=== PATIENT | female | born 1940 | race Caucasian/White ===

== ENCOUNTER 2021-05-19 07:11 | Inpatient (IN) | payer MEDICARE, MEDICAID ==
[2021-05-19 08:03] LABS: Hemoglobin 12.7 g/dL (12.0-16.0); Mean Corpuscular Hemoglobin 31.2 pg (27.0-31.0); Mean Corpuscular Volume 97.7 fL (78.0-98.0); Mean Platelet Volume 8.2 fL (7.4-10.4); Platelet Count 154 thou/uL (130-400); RBC Distribution Width 12.1 % (11.5-14.5); Red Blood Cell (RBC) Count 4.06 mill/uL (4.20-5.40); White Blood Cell (WBC) Count 35.7 thou/uL (4.8-10.8)
[2021-05-19 08:27] LABS: Band 57 % (5-11); MDiff Complete? YES; Metamyelocyte 2 % (0-0); Monocytes 1 % (0-10); Neutrophil 40 % (42-75); Reflex for Review?? YES
[2021-05-19 08:45] LABS: CKMB 18.6 ng/mL (0-6.6)
[2021-05-19] MEDS ORDERED: Aspirin 300 MG Suppository ONE (08:45)
[2021-05-19] MEDS ORDERED: Acetaminophen 650 MG Suppository ONE (08:45)
[2021-05-19] MEDS ORDERED: cefTRIAXone\\ROCEPHIN 2 GM VIAL ONE (08:50)
[2021-05-19 09:26] LABS: ALT (SGPT) 169 U/L (8-55); AST (SGOT) 161 U/L (5-34); Albumin 3.4 g/dL (3.4-4.8); Alkaline Phosphatase 290 U/L (40-110); Anion Gap 25 mmol/L (10-20); BUN (Urea Nitrogen) 37 mg/dL (9.8-20.1); Bilirubin, Total 1.4 mg/dL (0.2-1.2); Calc. Creatinine Clearance 0 mL/min (70-130); Calcium 7.8 mg/dL (7.8-10.44); Carbon Dioxide 13 mmol/L (23-31); Chloride 101 mmol/L (98-107); Globulin 2.7 g/dL (2.4-3.5); Glucose 348 mg/dL (83-110); Protein, Total 6.1 g/dL (5.8-8.1); Sodium 135 mmol/L (136-145)
[2021-05-19 10:31] LABS: INR-International Normal Ratio 1.3; Prothrombin Time 15.8 sec (12.0-14.7)
[2021-05-19 10:32] LABS: PTT 35.4 sec (22.9-36.1)
[2021-05-19 11:12] LABS: Bilirubin Negative (Negative); Blood, Urine Large (Negative); Glucose, Urine (Dipstick) 250 mg/dL (Negative); Ketone, Urine Negative (Negative); Leukocyte Small (Negative); Nitrite Positive (Negative); Protein, Urine (Dipstick) Negative (Neg-Trace); Specific Gravity, Urine 1.015 (1.005-1.030); Urobilinogen 0.2 mg/dL (Less than 2); pH, Urine 6.5 (5.0-9.0)
[2021-05-19 11:13] LABS: Clarity Cloudy (Clear)
[2021-05-19 11:18] LABS: Bacteria/HPF 4+ HPF (None Seen); Squamous Epithelial 0-3 HPF (0-3)
[2021-05-19] MEDS ORDERED: Norepinephrine 8 MG/0.9% NS 250 ML ONE (11:46)
[2021-05-19] MEDS ORDERED: Vancomycin 1 GM/200 ML BAG ONE (12:00)
[2021-05-19 12:04] LABS: Lactic Acid 2.3 mmol/L (0.5-2.2)
[2021-05-19] MEDS ORDERED: Sodium Bicarbonate 100 MEQ in Sodium Chloride 0.45% 1,000 ML IV SCH (12:30)
[2021-05-19 13:06] LABS: Actual Bicarbonate (HCO3v) 17 mEq/L (22-28); Analyzer IN Cardio ER; Base Excess -5.2 mEq/L (-2.0 to +3.0); Calcium, Ionized (venous) 0.87 mmol/L (1.16-1.32); Chloride (VBG) 106 mmol/L (98-106); Hemoglobin (Hb) 11.9 g/dL (11.7-16.1); Potassium (VBG) 3.31 mmol/L (3.70-5.30); Sodium 132.5 mmol/L (133-146); pH (venous) 7.47 (7.32-7.43)
[2021-05-19 13:07] LABS: SARS-CoV-2 NAA Rapid Test Not Detected (NotDetected)
[2021-05-19 13:21] LABS: Anion Gap 15 mmol/L (10-20); BUN (Urea Nitrogen) 33 mg/dL (9.8-20.1); CK (CPK) 1789 U/L (29-168); Calc. Creatinine Clearance 0 mL/min (70-130); Calcium 6.6 mg/dL (7.8-10.44); Carbon Dioxide 17 mmol/L (23-31); Chloride 107 mmol/L (98-107); Glucose 340 mg/dL (83-110); Lipase 4 U/L (8-78); Magnesium 1.1 mg/dL (1.6-2.6); Phosphorus 3.3 mg/dL (2.3-4.7); Potassium 3.7 mmol/L (3.5-5.1); Sodium 135 mmol/L (136-145)
[2021-05-19 13:47] LABS: CKMB 18.7 ng/mL (0-6.6)
[2021-05-19] MEDS ORDERED: Magnesium Sulfate 4 GM in Sodium Chloride 0.9% 250 ML 250 ML IVPB SCH (14:00)
[2021-05-19] MEDS ORDERED: Dextrose 50% Abboject 50 ML SYRINGE SLOW IVP PRN (14:16)
[2021-05-19] MEDS ORDERED: Dextrose 5% in Water 1,000 ML IV PRN (14:16)
[2021-05-19] MEDS ORDERED: Senokot S 8.6-50 MG TAB PO PRN (14:18)
[2021-05-19] MEDS ORDERED: Calcium Carbonate 500 MG ChewTAB PO PRN (14:18)
[2021-05-19] MEDS ORDERED: Bisacodyl 10 MG SUPP PR PRN (14:23)
[2021-05-19] MEDS ORDERED: Electrolyte Replacement Protocol 1 EACH IVPB ONE ×2 (14:23→15:27)
[2021-05-19] MEDS ORDERED: Norepinephrine 8 MG/0.9% NS 250 ML IVPB PRN (14:23)
[2021-05-19] MEDS ORDERED: Vancomycin 1 GM in Premix Bag 1 BAG IVPB SCH (14:30)
[2021-05-19] MEDS ORDERED: Meropenem 1 GM in Sodium Chloride 0.9% 100 ML IVPB SCH (14:30)
[2021-05-19] MEDS ORDERED: Pantoprazole 40 MG VIAL IVP SCH (15:00)
[2021-05-19] MEDS ORDERED: Heparin 1,000 UNITS/ML VIAL ONE (15:03)
[2021-05-19] MEDS ORDERED: Electrolyte Replacement Protocol FS PRN (15:15)
[2021-05-19] MEDS ORDERED: Sodium Bicarbonate 150 MEQ in Dextrose 5% in Water 1,000 ML IV SCH (15:30)
[2021-05-19] MEDS ORDERED: Propofol 1,000 MG/100 ML VIAL IV SCH (15:30)
[2021-05-19] MEDS ORDERED: Ventilator Sedation Protocol 1 EACH FS SCH (15:30)
[2021-05-19] MEDS ORDERED: Piperacillin/Tazobactam 3.375 GM in Sodium Chloride 0.9% 100 ML IVPB SCH (15:30)
[2021-05-19] MEDS ORDERED: MEROPENEM 1 GM/50 ML 1 GM in Premix Bag 1 BAG IVPB SCH (15:45)
[2021-05-19] MEDS ORDERED: Sodium Chloride 0.9% (PF) 10 ML VIAL FS PRN (16:00)
[2021-05-19] MEDS ORDERED: Pantoprazole 40 MG VIAL ONE (16:28)
[2021-05-19] MEDS: Pantoprazole 40 MG VIAL IVP SCH (16:43)
[2021-05-19] MEDS: Heparin 5,000 UNITS/ML VIAL SC SCH (16:44)
[2021-05-19] MEDS: Midodrine HCl 5 MG TAB PO SCH (17:04)
[2021-05-19 19:16] LABS: Anion Gap 19 mmol/L (10-20); BUN (Urea Nitrogen) 32 mg/dL (9.8-20.1); Calc. Creatinine Clearance 25 mL/min (70-130); Calcium 7.2 mg/dL (7.8-10.44); Carbon Dioxide 18 mmol/L (23-31); Chloride 104 mmol/L (98-107); Glucose 294 mg/dL (83-110); Sodium 137 mmol/L (136-145)
[2021-05-19 19:22] LABS: Troponin I 0.296 ng/mL (< 0.028)
[2021-05-19] MEDS ORDERED: Acetaminophen 325 MG TAB ONE (20:45)
[2021-05-19] MEDS: Acetaminophen 325 MG TAB PO PRN (20:52)
[2021-05-19] MEDS ORDERED: Meropenem 2 GM in Admixture Fee 1 EACH IVPB SCH (22:00)
[2021-05-19] MEDS: Sodium Chloride 0.9% 1,000 ML IV SCH (23:21)
[2021-05-20] MEDS: Meropenem 500 MG in Sodium Chloride 0.9% 100 ML IVPB SCH ×3 (00:01→23:25)
[2021-05-20] MEDS: Clopidogrel Bisulfate 75 MG TAB PO SCH ×2 (03:00→16:59)
[2021-05-20 03:31] LABS: Lactic Acid 1.7 mmol/L (0.5-2.2)
[2021-05-20 03:37] LABS: ALT (SGPT) 108 U/L (8-55); AST (SGOT) 96 U/L (5-34); Albumin 2.4 g/dL (3.4-4.8); Alkaline Phosphatase 179 U/L (40-110); Anion Gap 16 mmol/L (10-20); BUN (Urea Nitrogen) 37 mg/dL (9.8-20.1); Bilirubin, Total 0.6 mg/dL (0.2-1.2); CK (CPK) 1062 U/L (29-168); Calc. Creatinine Clearance 23 mL/min (70-130); Calcium 7.7 mg/dL (7.8-10.44); Carbon Dioxide 17 mmol/L (23-31); Chloride 105 mmol/L (98-107); Globulin 2.6 g/dL (2.4-3.5); Glucose 379 mg/dL (83-110); Magnesium 2.1 mg/dL (1.6-2.6); Potassium 3.4 mmol/L (3.5-5.1); Sodium 135 mmol/L (136-145)
[2021-05-20] MEDS ORDERED: Enoxaparin Sodium 60 MG/0.6 ML SYRINGE SC SCH (04:00)
[2021-05-20] MEDS ORDERED: Electrolyte Replacement Protocol 1 EACH FS SCH (04:00)
[2021-05-20 04:10] LABS: Band 18 % (5-11); Hemoglobin 11.9 g/dL (12.0-16.0); Lymphocytes 5 % (21-51); MDiff Complete? YES; Mean Corpuscular HGB CONC 33.1 g/dL (32.0-36.0); Mean Corpuscular Hemoglobin 31.7 pg (27.0-31.0); Mean Corpuscular Volume 95.8 fL (78.0-98.0); Mean Platelet Volume 8.6 fL (7.4-10.4); Metamyelocyte 3 % (0-0); Monocytes 7 % (0-10); Neutrophil 67 % (42-75); Platelet Count 125 thou/uL (130-400); Platelet Morphology Comment Appears Decreased; RBC Distribution Width 12.2 % (11.5-14.5); RBC Morphology Normal; Red Blood Cell (RBC) Count 3.77 mill/uL (4.20-5.40); White Blood Cell (WBC) Count 30.7 thou/uL (4.8-10.8)
[2021-05-20] MEDS: Midodrine HCl 5 MG TAB PO SCH ×4 (04:25→23:26)
[2021-05-20] MEDS ORDERED: Enoxaparin Sodium 60 MG/0.6 ML SYRINGE ONE (04:29)
[2021-05-20] MEDS ORDERED: Potassium Chloride 40 MEQ in Sodium Chloride 0.9% 250 ML 250 ML IVPB SCH (04:30)
[2021-05-20] MEDS ORDERED: Pantoprazole 40 MG VIAL IVP SCH (09:00)
[2021-05-20] MEDS ORDERED: Aspirin 81 mg Enteric Coated Tablet PO SCH (09:15)
[2021-05-20] MEDS ORDERED: Aspirin Chewable 81 MG TAB ONE (09:46)
[2021-05-20 10:09] LABS: Chloride 109 mmol/L (98-107); Potassium 4.4 mmol/L (3.5-5.1); Sodium 141 mmol/L (136-145)
[2021-05-20 10:10] LABS: Calcium 7.9 mg/dL (7.8-10.44); Glucose 337 mg/dL (83-110)
[2021-05-20 10:11] LABS: Carbon Dioxide 15 mmol/L (23-31)
[2021-05-20 10:12] LABS: Anion Gap 21 mmol/L (10-20); CKMB 4.5 ng/mL (0-6.6)
[2021-05-20 10:13] LABS: Calc. Creatinine Clearance 20 mL/min (70-130)
[2021-05-20 10:14] LABS: BUN (Urea Nitrogen) 40 mg/dL (9.8-20.1)
[2021-05-20 10:16] LABS: CK (CPK) 949 U/L (29-168)
[2021-05-20] MEDS: Sodium Chloride 0.9% 1,000 ML IV SCH ×2 (11:25→19:30)
[2021-05-20 11:46] LABS: Vancomycin, Random Less than 1.1 ug/mL (See Comment)
[2021-05-20] MEDS ORDERED: Vancomycin 1 GM in Premix Bag 1 BAG IVPB SCH ×2 (12:00→19:15)
[2021-05-20] MEDS: Pantoprazole 40 MG VIAL IVP SCH (16:59)
[2021-05-20] MEDS: Heparin 5,000 UNITS/ML VIAL SC SCH (17:01)
[2021-05-20] MEDS: Insulin Regular 300 UNITS/3 ML VIAL SC PRN ×2 (17:11→21:05)
[2021-05-21] MEDS: Insulin Regular 300 UNITS/3 ML VIAL SC PRN ×2 (05:54→10:40)
[2021-05-21] MEDS: Sodium Chloride 0.9% 1,000 ML IV SCH ×5 (07:22→12:52)
[2021-05-21] MEDS: Midodrine HCl 5 MG TAB PO SCH (09:09)
[2021-05-21 11:29] LABS: Vancomycin, Random 12.1 ug/mL (See Comment)
[2021-05-21 11:30] LABS: ALT (SGPT) 70 U/L (8-55); AST (SGOT) 58 U/L (5-34); Albumin 2.4 g/dL (3.4-4.8); Alkaline Phosphatase 134 U/L (40-110); Anion Gap 12 mmol/L (10-20); BUN (Urea Nitrogen) 42 mg/dL (9.8-20.1); Bilirubin, Total 0.8 mg/dL (0.2-1.2); Calc. Creatinine Clearance 34 mL/min (70-130); Calcium 7.8 mg/dL (7.8-10.44); Carbon Dioxide 18 mmol/L (23-31); Chloride 111 mmol/L (98-107); Globulin 1.8 g/dL (2.4-3.5); Glucose 198 mg/dL (83-110); Potassium 3.7 mmol/L (3.5-5.1); Protein, Total 4.2 g/dL (5.8-8.1); Sodium 137 mmol/L (136-145)
[2021-05-21 11:31] LABS: Hemoglobin 10.5 g/dL (12.0-16.0); Mean Corpuscular HGB CONC 31.5 g/dL (32.0-36.0); Mean Corpuscular Hemoglobin 29.9 pg (27.0-31.0); Mean Corpuscular Volume 94.9 fL (78.0-98.0); Mean Platelet Volume 8.7 fL (7.4-10.4); Platelet Count 120 thou/uL (130-400); RBC Distribution Width 12.2 % (11.5-14.5); Red Blood Cell (RBC) Count 3.52 mill/uL (4.20-5.40); White Blood Cell (WBC) Count 17.8 thou/uL (4.8-10.8)
[2021-05-21] MEDS ORDERED: Vancomycin 1 GM in Premix Bag 1 BAG IVPB SCH (11:45)
[2021-05-21 11:53] LABS: CKMB 2.2 ng/mL (0-6.6)
[2021-05-21] MEDS: Meropenem 500 MG in Sodium Chloride 0.9% 100 ML IVPB SCH ×2 (12:08→23:31)
[2021-05-21 12:49] LABS: Band 2 % (5-11); Lymphocytes 3 % (21-51); MDiff Complete? YES; Monocytes 7 % (0-10); Neutrophil 88 % (42-75); Platelet Morphology Comment Appears Decreased
[2021-05-21] MEDS ORDERED: Lactated Ringer's 500 ML IV SCH (13:30)
[2021-05-21] MEDS: Lactated Ringer's 1,000 ML IV SCH ×2 (14:00→21:09)
[2021-05-21 15:32] LABS: Magnesium 1.9 mg/dL (1.6-2.6); Phosphorus 2.6 mg/dL (2.3-4.7)
[2021-05-21 15:51] LABS: HIV (1/2) Antibody/Antigen Non-Reactive (NonReactive); HIV 1/2 INDEX 0.12 S/CO (<1.00); Hep C IgG Ab Non-Reactive (NonReactive); Hep C Index 0.27 S/CO (0-0.79)
[2021-05-21] MEDS: Clopidogrel Bisulfate 75 MG TAB PO SCH (21:10)
[2021-05-22] MEDS: Lactated Ringer's 1,000 ML IV SCH (05:32)
[2021-05-22 05:41] LABS: #Lymphocytes 0.6 thou/uL (1.20-3.40); #Monocytes 0.7 thou/uL (0.11-0.59); #Neutrophils 9.3 thou/uL (1.40-6.50); %Basophils 0.3 % (0.0-1.0); %Eosinophils 0.4 % (0.0-10.0); %Lymphocytes 5.6 % (21.0-51.0); %Monocytes 6.4 % (0.0-10.0); %Neutrophils 87.3 % (42.0-75.0); Hemoglobin 9.8 g/dL (12.0-16.0); Mean Corpuscular HGB CONC 32.6 g/dL (32.0-36.0); Mean Corpuscular Hemoglobin 31.2 pg (27.0-31.0); Mean Corpuscular Volume 95.4 fL (78.0-98.0); Mean Platelet Volume 8.8 fL (7.4-10.4); Platelet Count 119 thou/uL (130-400); RBC Distribution Width 12.1 % (11.5-14.5); Red Blood Cell (RBC) Count 3.14 mill/uL (4.20-5.40); White Blood Cell (WBC) Count 10.6 thou/uL (4.8-10.8)
[2021-05-22 06:01] LABS: ALT (SGPT) 81 U/L (8-55); AST (SGOT) 110 U/L (5-34); Albumin 2.2 g/dL (3.4-4.8); Alkaline Phosphatase 109 U/L (40-110); Anion Gap 15 mmol/L (10-20); BUN (Urea Nitrogen) 37 mg/dL (9.8-20.1); Calc. Creatinine Clearance 44 mL/min (70-130); Calcium 7.6 mg/dL (7.8-10.44); Carbon Dioxide 15 mmol/L (23-31); Chloride 111 mmol/L (98-107); Globulin 1.7 g/dL (2.4-3.5); Glucose 191 mg/dL (83-110); Potassium 3.6 mmol/L (3.5-5.1); Protein, Total 3.9 g/dL (5.8-8.1); Sodium 137 mmol/L (136-145)
[2021-05-22] MEDS ORDERED: Magnesium 2 GM/50 ML 2 GM in Premix Bag 1 BAG IVPB SCH (06:30)
[2021-05-22] MEDS: Tamsulosin HCl 0.4 MG CAP PO SCH ×2 (09:05→09:08)
[2021-05-22] MEDS: Meropenem 500 MG in Sodium Chloride 0.9% 100 ML IVPB SCH (14:03)
[2021-05-22] MEDS: MEROPENEM 1 GM/50 ML 1 GM in Premix Bag 1 BAG IVPB SCH (14:22)
[2021-05-22] MEDS: Clopidogrel Bisulfate 75 MG TAB PO SCH (21:34)
[2021-05-23] MEDS: MEROPENEM 1 GM/50 ML 1 GM in Premix Bag 1 BAG IVPB SCH ×2 (02:33→15:28)
[2021-05-23 05:21] LABS: Hemoglobin A1c 8.6 % (4.0-6.0)
[2021-05-23 05:27] LABS: Band 2 % (5-11); Hemoglobin 10.9 g/dL (12.0-16.0); Hypochromia SLIGHT = 6-15 cells (100X) (0-5/hpf); Lymphocytes 21 % (21-51); MDiff Complete? YES; Mean Corpuscular HGB CONC 32.5 g/dL (32.0-36.0); Mean Corpuscular Hemoglobin 30.7 pg (27.0-31.0); Mean Corpuscular Volume 94.7 fL (78.0-98.0); Mean Platelet Volume 8.1 fL (7.4-10.4); Monocytes 3 % (0-10); Neutrophil 74 % (42-75); Platelet Count 134 thou/uL (130-400); Platelet Morphology Comment Appears Adequate; RBC Distribution Width 12.4 % (11.5-14.5); Red Blood Cell (RBC) Count 3.56 mill/uL (4.20-5.40); White Blood Cell (WBC) Count 8.2 thou/uL (4.8-10.8)
[2021-05-23 05:33] LABS: ALT (SGPT) 86 U/L (8-55); AST (SGOT) 108 U/L (5-34); Albumin 2.3 g/dL (3.4-4.8); Alkaline Phosphatase 108 U/L (40-110); Anion Gap 15 mmol/L (10-20); BUN (Urea Nitrogen) 30 mg/dL (9.8-20.1); Bilirubin, Total 1.1 mg/dL (0.2-1.2); Calc. Creatinine Clearance 52 mL/min (70-130); Calcium 7.5 mg/dL (7.8-10.44); Carbon Dioxide 17 mmol/L (23-31); Chloride 111 mmol/L (98-107); Glucose 242 mg/dL (83-110); Potassium 3.5 mmol/L (3.5-5.1); Protein, Total 4.3 g/dL (5.8-8.1); Sodium 139 mmol/L (136-145)
[2021-05-23] MEDS ORDERED: Potassium Chloride 20 MEQ TAB PO SCH (06:45)
[2021-05-23] MEDS: Tamsulosin HCl 0.4 MG CAP PO SCH (10:05)
[2021-05-23] MEDS: Clopidogrel Bisulfate 75 MG TAB PO SCH (21:23)
[2021-05-24] MEDS: MEROPENEM 1 GM/50 ML 1 GM in Premix Bag 1 BAG IVPB SCH ×2 (03:25→13:52)
[2021-05-24 06:12] LABS: #Eosinphils 0.3 thou/uL (0.0-0.7); #Lymphocytes 0.7 thou/uL (1.20-3.40); #Monocytes 0.7 thou/uL (0.11-0.59); #Neutrophils 6.6 thou/uL (1.40-6.50); %Basophils 0.3 % (0.0-1.0); %Eosinophils 3.3 % (0.0-10.0); %Lymphocytes 8.5 % (21.0-51.0); %Monocytes 8.2 % (0.0-10.0); %Neutrophils 79.7 % (42.0-75.0); Hemoglobin 10.4 g/dL (12.0-16.0); Mean Corpuscular HGB CONC 32.6 g/dL (32.0-36.0); Mean Corpuscular Hemoglobin 30.8 pg (27.0-31.0); Mean Corpuscular Volume 94.7 fL (78.0-98.0); Mean Platelet Volume 8.2 fL (7.4-10.4); Platelet Count 156 thou/uL (130-400); RBC Distribution Width 12.4 % (11.5-14.5); Red Blood Cell (RBC) Count 3.36 mill/uL (4.20-5.40); White Blood Cell (WBC) Count 8.3 thou/uL (4.8-10.8)
[2021-05-24 06:33] LABS: ALT (SGPT) 86 U/L (8-55); AST (SGOT) 92 U/L (5-34); Albumin 2.2 g/dL (3.4-4.8); Alkaline Phosphatase 105 U/L (40-110); Anion Gap 12 mmol/L (10-20); BUN (Urea Nitrogen) 25 mg/dL (9.8-20.1); Bilirubin, Total 0.8 mg/dL (0.2-1.2); Calc. Creatinine Clearance 57 mL/min (70-130); Calcium 7.2 mg/dL (7.8-10.44); Carbon Dioxide 21 mmol/L (23-31); Chloride 110 mmol/L (98-107); Globulin 1.8 g/dL (2.4-3.5); Glucose 264 mg/dL (83-110); Potassium 3.9 mmol/L (3.5-5.1); Sodium 139 mmol/L (136-145)
[2021-05-24] MEDS: Insulin Regular 300 UNITS/3 ML VIAL SC PRN ×3 (06:41→21:31)
[2021-05-24] MEDS: Enoxaparin Sodium 30 MG/0.3 ML SYRINGE SC SCH (08:13)
[2021-05-24] MEDS: Tamsulosin HCl 0.4 MG CAP PO SCH (08:13)
[2021-05-24 10:41] LABS: Hep B Surface AG-Rflx Sendout Negative (Negative); Hepatitis B Core Total Negative (Negative); Hepatitis B Surface AB-Sendout Non Reactive (.)
[2021-05-24] MEDS: Clopidogrel Bisulfate 75 MG TAB PO SCH (21:29)
[2021-05-25] MEDS: MEROPENEM 1 GM/50 ML 1 GM in Premix Bag 1 BAG IVPB SCH ×4 (02:55→21:04)
[2021-05-25] MEDS: Enoxaparin Sodium 30 MG/0.3 ML SYRINGE SC SCH (08:41)
[2021-05-25] MEDS: Tamsulosin HCl 0.4 MG CAP PO SCH (08:42)
[2021-05-25] MEDS: Insulin Regular 300 UNITS/3 ML VIAL SC PRN ×2 (12:15→16:38)
[2021-05-25] MEDS: glipiZIDE 5 MG TAB PO SCH ×2 (15:54→21:04)
[2021-05-25] MEDS: Atorvastatin Calcium 20 MG TAB PO SCH (21:04)
[2021-05-25] MEDS: Clopidogrel Bisulfate 75 MG TAB PO SCH (21:04)
[2021-05-26] MEDS: Acetaminophen 325 MG TAB PO PRN (01:10)
[2021-05-26] MEDS: Tamsulosin HCl 0.4 MG CAP PO SCH (08:30)
[2021-05-26] MEDS: Ferrous Sulfate 325 MG TAB PO SCH (08:30)
[2021-05-26] MEDS: MEROPENEM 1 GM/50 ML 1 GM in Premix Bag 1 BAG IVPB SCH ×3 (08:30→20:17)
[2021-05-26] MEDS: glipiZIDE 5 MG TAB PO SCH ×3 (08:30→20:13)
[2021-05-26] MEDS: Enoxaparin Sodium 30 MG/0.3 ML SYRINGE SC SCH (08:31)
[2021-05-26] MEDS: Atorvastatin Calcium 20 MG TAB PO SCH (20:13)
[2021-05-26] MEDS: Clopidogrel Bisulfate 75 MG TAB PO SCH (20:14)
[2021-05-26 20:23] LABS: SARS-CoV-2 PCR by NAA Not Detected (NotDetected)
[2021-05-26] MEDS ORDERED: Benzonatate 100 MG CAP PO PRN (22:09)
[2021-05-26] MEDS ORDERED: Guaifenesin DM 100-10/5 ML UDCUP PO PRN (22:09)
[2021-05-27 07:18] LABS: #Basophils 0.1 thou/uL (0.0-0.2); #Eosinphils 0.2 thou/uL (0.0-0.7); #Lymphocytes 0.8 thou/uL (1.20-3.40); #Monocytes 0.6 thou/uL (0.11-0.59); #Neutrophils 3.6 thou/uL (1.40-6.50); %Basophils 1.2 % (0.0-1.0); %Eosinophils 3.1 % (0.0-10.0); %Lymphocytes 14.8 % (21.0-51.0); %Monocytes 11.5 % (0.0-10.0); %Neutrophils 69.5 % (42.0-75.0); Hemoglobin 10.7 g/dL (12.0-16.0); Mean Corpuscular HGB CONC 31.8 g/dL (32.0-36.0); Mean Corpuscular Hemoglobin 30.4 pg (27.0-31.0); Mean Corpuscular Volume 95.6 fL (78.0-98.0); Mean Platelet Volume 7.5 fL (7.4-10.4); Platelet Count 262 thou/uL (130-400); RBC Distribution Width 12.4 % (11.5-14.5); White Blood Cell (WBC) Count 5.2 thou/uL (4.8-10.8)
[2021-05-27 07:56] LABS: ALT (SGPT) 32 U/L (8-55); AST (SGOT) 25 U/L (5-34); Albumin 2.1 g/dL (3.4-4.8); Alkaline Phosphatase 114 U/L (40-110); Anion Gap 11 mmol/L (10-20); BUN (Urea Nitrogen) 12 mg/dL (9.8-20.1); Bilirubin, Total 0.5 mg/dL (0.2-1.2); Calc. Creatinine Clearance 81 mL/min (70-130); Calcium 7.4 mg/dL (7.8-10.44); Carbon Dioxide 21 mmol/L (23-31); Chloride 113 mmol/L (98-107); Globulin 1.9 g/dL (2.4-3.5); Glucose 139 mg/dL (83-110); Potassium 4.2 mmol/L (3.5-5.1); Sodium 141 mmol/L (136-145)
[2021-05-27] MEDS: Enoxaparin Sodium 30 MG/0.3 ML SYRINGE SC SCH (08:19)
[2021-05-27] MEDS: Ferrous Sulfate 325 MG TAB PO SCH (08:20)
[2021-05-27] MEDS: glipiZIDE 5 MG TAB PO SCH (08:21)
[2021-05-27] MEDS: Tamsulosin HCl 0.4 MG CAP PO SCH (08:21)
[2021-05-27] MEDS: MEROPENEM 1 GM/50 ML 1 GM in Premix Bag 1 BAG IVPB SCH (09:30)
[2021-05-27 12:01] VITALS: BMI 34.0
[2021-05-27 13:25] VITALS: BP 124/76; TEMP 98.5
== END 2021-05-27 14:56 | disposition home or self-care (01) | DRG 871 ==
LOC: ERS 07:11 → ERHOLD 12:38 → 2NO 05-20 16:49 → T4-A 05-23 19:01
PROVIDERS: ADMIT Internal Medicine; ATTEND Family Medicine
PROC: 06HY33Z Insertion of Infusion Device into Lower Vein, Percutaneous Approach (ICD-10-PCS; principal; 2021-05-19)
PROC: 3E033XZ Introduction of Vasopressor into Peripheral Vein, Percutaneous Approach (ICD-10-PCS; 2021-05-19)
PROC: 02HV33Z Insertion of Infusion Device into Superior Vena Cava, Percutaneous Approach (ICD-10-PCS; 2021-05-23)
PROC: B5181ZA Fluoroscopy of Superior Vena Cava using Low Osmolar Contrast, Guidance (ICD-10-PCS; 2021-05-23)
PROC: B548ZZA Ultrasonography of Superior Vena Cava, Guidance (ICD-10-PCS; 2021-05-23)
DX: A41.9 Sepsis, unspecified organism (principal); R65.21 Severe sepsis with septic shock; I21.A1 Myocardial infarction type 2; G92 Toxic encephalopathy; N17.9 Acute kidney failure, unspecified; M62.82 Rhabdomyolysis; N13.6 Pyonephrosis; E87.1 Hypo-osmolality and hyponatremia; I13.0 Hypertensive heart and chronic kidney disease with heart failure and stage 1 through stage 4 chronic kidney disease, or unspecified chronic kidney disease; I50.30 Unspecified diastolic (congestive) heart failure; N18.4 Chronic kidney disease, stage 4 (severe); E11.22 Type 2 diabetes mellitus with diabetic chronic kidney disease; E78.5 Hyperlipidemia, unspecified; F41.9 Anxiety disorder, unspecified; F32.9 Major depressive disorder, single episode, unspecified; E87.6 Hypokalemia; E83.42 Hypomagnesemia; Z20.822 Contact with and (suspected) exposure to COVID-19; E11.65 Type 2 diabetes mellitus with hyperglycemia; D64.9 Anemia, unspecified; I25.10 Atherosclerotic heart disease of native coronary artery without angina pectoris; I44.7 Left bundle-branch block, unspecified; G25.81 Restless legs syndrome; K21.9 Gastro-esophageal reflux disease without esophagitis; N20.0 Calculus of kidney; Z88.5 Allergy status to narcotic agent; Z88.8 Allergy status to other drugs, medicaments and biological substances; Z86.73 Personal history of transient ischemic attack (TIA), and cerebral infarction without residual deficits
CPT/HCPCS: 36415; 36416; 36569; 71045; 74176; 76700; 80053; 80202; 81003; 81015; 82533; 82550; 82553; 82805; 83036; 83605; 83690; 83735; 83880; 84100; 84484; 85025; 85060; 85610; 85730; 86140; 86704; 86705; 86706; 86707; 86803; 87040; 87077; 87086; 87186; 87340; 87350; 87389; 93005; 93306; 94640; 94760; C1751; C9113; J0696; J1644; J1650; J1815; J2185; J3370; J3475; J3480; J3490; J7050; J7120; J7620; U0002; U0003; U0005

== ENCOUNTER 2021-06-25 08:20 | Inpatient (IN) | payer MEDICARE, MEDICAID ==
[2021-06-25] MEDS ORDERED: Piperacillin/Tazobactam 3.375 GM VIAL ONE (08:47)
[2021-06-25] MEDS ORDERED: Piperacillin/Tazobactam 4.5 GM in Sodium Chloride 0.9% 100 ML IVPB SCH (09:00)
[2021-06-25 09:07] LABS: INR-International Normal Ratio 1.4; Prothrombin Time 17.4 sec (12.0-14.7)
[2021-06-25 09:08] LABS: PTT 40.3 sec (22.9-36.1)
[2021-06-25 09:10] LABS: Band 22 % (5-11); Hemoglobin 10.7 g/dL (12.0-16.0); Lymphocytes 5 % (21-51); MDiff Complete? YES; Mean Corpuscular HGB CONC 33.9 g/dL (32.0-36.0); Mean Corpuscular Hemoglobin 31.4 pg (27.0-31.0); Mean Corpuscular Volume 92.7 fL (78.0-98.0); Mean Platelet Volume 6.5 fL (7.4-10.4); Monocytes 5 % (0-10); Neutrophil 68 % (42-75); Platelet Count 350 thou/uL (130-400); RBC Distribution Width 14.4 % (11.5-14.5); Red Blood Cell (RBC) Count 3.41 mill/uL (4.20-5.40)
[2021-06-25 09:12] LABS: ALT (SGPT) 10 U/L (8-55); AST (SGOT) 16 U/L (5-34); Alkaline Phosphatase 156 U/L (40-110); Anion Gap 17 mmol/L (10-20); BUN (Urea Nitrogen) 47 mg/dL (9.8-20.1); Calc. Creatinine Clearance 0 mL/min (70-130); Calcium 6.8 mg/dL (7.8-10.44); Carbon Dioxide 19 mmol/L (23-31); Chloride 96 mmol/L (98-107); Globulin 2.4 g/dL (2.4-3.5); Glucose 123 mg/dL (83-110); Potassium 3.4 mmol/L (3.5-5.1); Protein, Total 4.4 g/dL (5.8-8.1); Sodium 129 mmol/L (136-145)
[2021-06-25 09:59] LABS: Bacteria/HPF 4+ HPF (None Seen); Bilirubin Negative (Negative); Blood, Urine Negative (Negative); Clarity Turbid (Clear); Glucose, Urine (Dipstick) Normal (Negative); Ketone, Urine Negative (Negative); Leukocyte 500 Leu/uL (Negative); Nitrite Negative (Negative); Protein, Urine (Dipstick) Negative (Neg-Trace); RBC/HPF 0-3 HPF (0-3); Specific Gravity, Urine 1.018 (1.002-1.036); Squamous Epithelial 0-3 HPF (0-3); Urobilinogen Normal mg/dL (Less than 2); WBC/HPF Greater than 50 HPF (0-3)
[2021-06-25] MEDS ORDERED: Acetaminophen 650 MG Suppository PR PRN (10:44)
[2021-06-25] MEDS: Meropenem 1 GM in Sodium Chloride 0.9% 100 ML IVPB SCH ×2 (12:40→23:19)
[2021-06-25] MEDS ORDERED: Potassium Chloride 40 MEQ in Premix Bag 1 BAG IVPB SCH (14:15)
[2021-06-25] MEDS ORDERED: Electrolyte Replacement Protocol 1 EACH FS SCH (14:15)
[2021-06-25] MEDS ORDERED: Potassium Chloride 40 MEQ in Sodium Chloride 0.9% 250 ML 250 ML IVPB SCH (14:30)
[2021-06-25 14:58] LABS: Magnesium 1.2 mg/dL (1.6-2.6); Phosphorus 4.5 mg/dL (2.3-4.7)
[2021-06-25] MEDS ORDERED: FLU VACC QS2021-22(65YR UP)/PF 240 MCG/0.7 ML SYRINGE IM ONE (15:15)
[2021-06-25] MEDS: Lactated Ringer's 1,000 ML IV SCH ×2 (15:49→22:15)
[2021-06-25] MEDS: Vancomycin 25 MG/ML Oral SOLN PO SCH ×2 (15:50→20:56)
[2021-06-25 15:56] LABS: SARS-CoV-2 NAA Rapid Test Not Detected (NotDetected)
[2021-06-25] MEDS ORDERED: Dextrose 5% in Water 1,000 ML IV PRN (17:54)
[2021-06-25] MEDS ORDERED: HumaLOG 300 UNITS/3 ML VIAL SC PRN (17:54)
[2021-06-25] MEDS ORDERED: Magnesium 2 GM/50 ML 2 GM in Premix Bag 1 BAG IVPB SCH (21:15)
[2021-06-26] MEDS: Vancomycin 25 MG/ML Oral SOLN PO SCH ×4 (02:33→22:32)
[2021-06-26] MEDS: Lactated Ringer's 1,000 ML IV SCH (05:26)
[2021-06-26] MEDS: Dextrose 50% Abboject 50 ML SYRINGE SLOW IVP PRN (05:58)
[2021-06-26 07:30] LABS: ALT (SGPT) 9 U/L (8-55); AST (SGOT) 19 U/L (5-34); Albumin 1.7 g/dL (3.4-4.8); Alkaline Phosphatase 125 U/L (40-110); Anion Gap 14 mmol/L (10-20); BUN (Urea Nitrogen) 52 mg/dL (9.8-20.1); Bilirubin, Total 0.6 mg/dL (0.2-1.2); Calc. Creatinine Clearance 25 mL/min (70-130); Calcium 7.3 mg/dL (7.8-10.44); Carbon Dioxide 18 mmol/L (23-31); Chloride 100 mmol/L (98-107); Globulin 2.1 g/dL (2.4-3.5); Glucose 116 mg/dL (83-110); Potassium 3.5 mmol/L (3.5-5.1); Protein, Total 3.8 g/dL (5.8-8.1); Sodium 128 mmol/L (136-145)
[2021-06-26 07:55] LABS: Band 10 % (5-11); Lymphocytes 5 % (21-51); MDiff Complete? YES; Monocytes 2 % (0-10); Neutrophil 83 % (42-75)
[2021-06-26 07:56] LABS: Mean Corpuscular Hemoglobin 31.9 pg (27.0-31.0); Mean Corpuscular Volume 93.6 fL (78.0-98.0); Mean Platelet Volume 6.5 fL (7.4-10.4); Platelet Count 288 thou/uL (130-400); RBC Distribution Width 14.6 % (11.5-14.5); Red Blood Cell (RBC) Count 2.83 mill/uL (4.20-5.40); White Blood Cell (WBC) Count 31.5 thou/uL (4.8-10.8)
[2021-06-26] MEDS ORDERED: Sodium Chloride 0.65% Nasal 44 ML BOT EA NARE PRN (08:15)
[2021-06-26] MEDS ORDERED: Ondansetron ODT 4 MG TAB PO PRN (08:15)
[2021-06-26] MEDS ORDERED: Cepastat Lozenges 1 LOZ PO PRN (08:15)
[2021-06-26] MEDS ORDERED: Loratadine 10 MG TAB PO PRN (08:15)
[2021-06-26] MEDS ORDERED: Hydrocerin (Eucerin) Cream 120 gm Jar TOP PRN (08:15)
[2021-06-26] MEDS ORDERED: GUAIFENESIN SF SOLN 200 MG/10 ML UDCUP PO PRN (08:15)
[2021-06-26] MEDS ORDERED: Ondansetron PF 4 MG/2 ML Vial IVP PRN (08:15)
[2021-06-26] MEDS ORDERED: Calcium Carbonate 500 MG ChewTAB PO PRN (08:15)
[2021-06-26] MEDS ORDERED: hydrALAZINE 20 MG/ML VIAL SLOW IVP PRN (08:15)
[2021-06-26] MEDS ORDERED: Artificial Tear Sol 15 ML BOT EA EYE PRN (08:15)
[2021-06-26] MEDS: Saccharomyces boulardii 250 MG CAP PO SCH (09:01)
[2021-06-26] MEDS: Enoxaparin Sodium 30 MG/0.3 ML SYRINGE SC SCH (09:01)
[2021-06-26] MEDS: 1/2 NS w/KCL 20 mEq 1,000 ML IV SCH ×2 (09:30→17:28)
[2021-06-26] MEDS: Meropenem 1 GM in Sodium Chloride 0.9% 100 ML IVPB SCH ×2 (11:43→23:30)
[2021-06-27] MEDS: Vancomycin 25 MG/ML Oral SOLN PO SCH ×6 (02:11→20:39)
[2021-06-27 06:35] LABS: Hemoglobin 9.3 g/dL (12.0-16.0); Mean Corpuscular HGB CONC 33.8 g/dL (32.0-36.0); Mean Corpuscular Hemoglobin 31.3 pg (27.0-31.0); Mean Corpuscular Volume 92.8 fL (78.0-98.0); Mean Platelet Volume 6.3 fL (7.4-10.4); Platelet Count 303 thou/uL (130-400); RBC Distribution Width 14.6 % (11.5-14.5); Red Blood Cell (RBC) Count 2.97 mill/uL (4.20-5.40); White Blood Cell (WBC) Count 17.8 thou/uL (4.8-10.8)
[2021-06-27 06:51] LABS: Lactic Acid 1.6 mmol/L (0.5-2.2); Phosphorus 4.3 mg/dL (2.3-4.7)
[2021-06-27 06:55] LABS: ALT (SGPT) 14 U/L (8-55); AST (SGOT) 20 U/L (5-34); Albumin 1.9 g/dL (3.4-4.8); Alkaline Phosphatase 134 U/L (40-110); Anion Gap 15 mmol/L (10-20); BUN (Urea Nitrogen) 48 mg/dL (9.8-20.1); Bilirubin, Total 0.5 mg/dL (0.2-1.2); Calc. Creatinine Clearance 21 mL/min (70-130); Calcium 7.1 mg/dL (7.8-10.44); Carbon Dioxide 16 mmol/L (23-31); Chloride 98 mmol/L (98-107); Globulin 2.2 g/dL (2.4-3.5); Glucose 102 mg/dL (83-110); Magnesium 1.7 mg/dL (1.6-2.6); Potassium 3.8 mmol/L (3.5-5.1); Protein, Total 4.1 g/dL (5.8-8.1); Sodium 125 mmol/L (136-145)
[2021-06-27 06:59] LABS: Band 15 % (5-11); Eosinophils 1 % (0-10); Lymphocytes 2 % (21-51); MDiff Complete? YES; Metamyelocyte 1 % (0-0); Monocytes 3 % (0-10); Neutrophil 78 % (42-75)
[2021-06-27] MEDS: 1/2 NS w/KCL 20 mEq 1,000 ML IV SCH ×2 (07:55→12:45)
[2021-06-27] MEDS: Saccharomyces boulardii 250 MG CAP PO SCH (08:15)
[2021-06-27] MEDS: Enoxaparin Sodium 30 MG/0.3 ML SYRINGE SC SCH (08:15)
[2021-06-27] MEDS: Dextrose 50% Abboject 50 ML SYRINGE SLOW IVP PRN ×2 (12:20→20:30)
[2021-06-27] MEDS: Meropenem 1 GM in Sodium Chloride 0.9% 100 ML IVPB SCH (12:45)
[2021-06-27 15:17] VITALS: BMI 27.9
[2021-06-27 22:01] LABS: Glucose 122 mg/dL (83-110)
[2021-06-27] MEDS: D5 0.9% NS w/ 20 mEq KCl 1,000 ML IV SCH (23:42)
[2021-06-28 02:22] LABS: Glucose 147 mg/dL (83-110)
[2021-06-28] MEDS: Vancomycin 25 MG/ML Oral SOLN PO SCH ×4 (02:37→21:06)
[2021-06-28 04:50] LABS: #Eosinphils 0.3 thou/uL (0.0-0.7); #Lymphocytes 0.7 thou/uL (1.20-3.40); #Monocytes 0.5 thou/uL (0.11-0.59); #Neutrophils 6.1 thou/uL (1.40-6.50); %Basophils 0.1 % (0.0-1.0); %Eosinophils 4.3 % (0.0-10.0); %Monocytes 6.6 % (0.0-10.0); Hemoglobin 9.6 g/dL (12.0-16.0); Mean Corpuscular Hemoglobin 31.7 pg (27.0-31.0); Mean Corpuscular Volume 93.4 fL (78.0-98.0); Mean Platelet Volume 6.4 fL (7.4-10.4); Platelet Count 242 thou/uL (130-400); RBC Distribution Width 14.5 % (11.5-14.5); Red Blood Cell (RBC) Count 3.02 mill/uL (4.20-5.40); White Blood Cell (WBC) Count 7.6 thou/uL (4.8-10.8)
[2021-06-28 05:10] LABS: ALT (SGPT) 17 U/L (8-55); AST (SGOT) 41 U/L (5-34); Albumin 1.6 g/dL (3.4-4.8); Alkaline Phosphatase 119 U/L (40-110); Anion Gap 13 mmol/L (10-20); BUN (Urea Nitrogen) 54 mg/dL (9.8-20.1); Bilirubin, Total 0.4 mg/dL (0.2-1.2); Calc. Creatinine Clearance 22 mL/min (70-130); Calcium 6.7 mg/dL (7.8-10.44); Carbon Dioxide 16 mmol/L (23-31); Chloride 100 mmol/L (98-107); Globulin 2.2 g/dL (2.4-3.5); Glucose 140 mg/dL (83-110); Protein, Total 3.8 g/dL (5.8-8.1); Sodium 125 mmol/L (136-145)
[2021-06-28] MEDS: D5 0.9% NS w/ 20 mEq KCl 1,000 ML IV SCH ×2 (07:25→12:09)
[2021-06-28] MEDS: Enoxaparin Sodium 30 MG/0.3 ML SYRINGE SC SCH (08:54)
[2021-06-28] MEDS: Saccharomyces boulardii 250 MG CAP PO SCH (08:54)
[2021-06-29] MEDS: D5 0.9% NS w/ 20 mEq KCl 1,000 ML IV SCH ×2 (00:25→12:17)
[2021-06-29] MEDS: Vancomycin 25 MG/ML Oral SOLN PO SCH ×4 (03:01→20:34)
[2021-06-29 07:55] LABS: #Eosinphils 0.4 thou/uL (0.0-0.7); #Lymphocytes 1.2 thou/uL (1.20-3.40); #Monocytes 0.9 thou/uL (0.11-0.59); %Basophils 0.3 % (0.0-1.0); %Lymphocytes 12.3 % (21.0-51.0); %Monocytes 9.4 % (0.0-10.0); %Neutrophils 74.1 % (42.0-75.0); Hemoglobin 10.4 g/dL (12.0-16.0); Mean Corpuscular HGB CONC 33.1 g/dL (32.0-36.0); Mean Corpuscular Hemoglobin 30.4 pg (27.0-31.0); Mean Corpuscular Volume 91.8 fL (78.0-98.0); Platelet Count 234 thou/uL (130-400); RBC Distribution Width 14.7 % (11.5-14.5); Red Blood Cell (RBC) Count 3.44 mill/uL (4.20-5.40); White Blood Cell (WBC) Count 9.4 thou/uL (4.8-10.8)
[2021-06-29 08:10] LABS: ALT (SGPT) 21 U/L (8-55); AST (SGOT) 50 U/L (5-34); Albumin 1.7 g/dL (3.4-4.8); Alkaline Phosphatase 138 U/L (40-110); Anion Gap 11 mmol/L (10-20); BUN (Urea Nitrogen) 53 mg/dL (9.8-20.1); Bilirubin, Total 0.4 mg/dL (0.2-1.2); Calc. Creatinine Clearance 25 mL/min (70-130); Calcium 7.2 mg/dL (7.8-10.44); Carbon Dioxide 17 mmol/L (23-31); Chloride 104 mmol/L (98-107); Globulin 2.2 g/dL (2.4-3.5); Glucose 139 mg/dL (83-110); Potassium 4.4 mmol/L (3.5-5.1); Protein, Total 3.9 g/dL (5.8-8.1); Sodium 128 mmol/L (136-145)
[2021-06-29] MEDS: Enoxaparin Sodium 30 MG/0.3 ML SYRINGE SC SCH (09:19)
[2021-06-29] MEDS: Saccharomyces boulardii 250 MG CAP PO SCH (09:19)
[2021-06-29] MEDS: Cholestyramine/Aspartame 4 gm Packet PO SCH ×2 (12:15→17:12)
[2021-06-29] MEDS: Acetaminophen 325 MG TAB PO PRN (14:19)
[2021-06-29] MEDS: Melatonin 3 MG TAB PO PRN (20:34)
[2021-06-30] MEDS: D5 0.9% NS w/ 20 mEq KCl 1,000 ML IV SCH (00:52)
[2021-06-30] MEDS: Vancomycin 25 MG/ML Oral SOLN PO SCH ×4 (03:53→21:25)
[2021-06-30] MEDS: Cholestyramine/Aspartame 4 gm Packet PO SCH ×3 (05:28→19:12)
[2021-06-30] MEDS: Acetaminophen 325 MG TAB PO PRN (06:02)
[2021-06-30 06:10] LABS: #Eosinphils 0.4 thou/uL (0.0-0.7); #Lymphocytes 1.6 thou/uL (1.20-3.40); #Monocytes 0.9 thou/uL (0.11-0.59); #Neutrophils 5.8 thou/uL (1.40-6.50); %Basophils 0.5 % (0.0-1.0); %Lymphocytes 17.9 % (21.0-51.0); %Monocytes 10.1 % (0.0-10.0); %Neutrophils 66.4 % (42.0-75.0); Hemoglobin 10.8 g/dL (12.0-16.0); Mean Corpuscular HGB CONC 33.6 g/dL (32.0-36.0); Mean Corpuscular Hemoglobin 31.1 pg (27.0-31.0); Mean Corpuscular Volume 92.6 fL (78.0-98.0); Mean Platelet Volume 6.9 fL (7.4-10.4); Platelet Count 272 thou/uL (130-400); Red Blood Cell (RBC) Count 3.47 mill/uL (4.20-5.40); White Blood Cell (WBC) Count 8.7 thou/uL (4.8-10.8)
[2021-06-30 06:31] LABS: ALT (SGPT) 16 U/L (8-55); AST (SGOT) 29 U/L (5-34); Albumin 1.8 g/dL (3.4-4.8); Alkaline Phosphatase 136 U/L (40-110); Anion Gap 13 mmol/L (10-20); BUN (Urea Nitrogen) 45 mg/dL (9.8-20.1); Bilirubin, Total 0.4 mg/dL (0.2-1.2); Calc. Creatinine Clearance 36 mL/min (70-130); Calcium 7.6 mg/dL (7.8-10.44); Carbon Dioxide 15 mmol/L (23-31); Chloride 110 mmol/L (98-107); Globulin 2.4 g/dL (2.4-3.5); Glucose 140 mg/dL (83-110); Potassium 4.5 mmol/L (3.5-5.1); Protein, Total 4.2 g/dL (5.8-8.1); Sodium 133 mmol/L (136-145)
[2021-06-30] MEDS: Saccharomyces boulardii 250 MG CAP PO SCH (08:53)
[2021-06-30] MEDS: Enoxaparin Sodium 30 MG/0.3 ML SYRINGE SC SCH (08:53)
[2021-06-30] MEDS ORDERED: Sodium Bicarbonate 150 MEQ in Dextrose 5% in Water 1,000 ML IV SCH (10:00)
[2021-06-30] MEDS: HYDROcodone/Acetaminophen 5/325 mg Tablet PO PRN ×2 (11:10→16:08)
[2021-06-30 19:04] LABS: Creatinine, Urine 39.64 mg/dL (47-110)
[2021-06-30] MEDS: Melatonin 3 MG TAB PO PRN (21:29)
[2021-07-01] MEDS: Vancomycin 25 MG/ML Oral SOLN PO SCH ×4 (02:47→21:27)
[2021-07-01] MEDS: Cholestyramine/Aspartame 4 gm Packet PO SCH ×3 (05:43→18:20)
[2021-07-01] MEDS: HYDROcodone/Acetaminophen 5/325 mg Tablet PO PRN ×3 (06:13→17:50)
[2021-07-01 06:37] LABS: #Basophils 0.1 thou/uL (0.0-0.2); #Eosinphils 0.3 thou/uL (0.0-0.7); #Lymphocytes 1.7 thou/uL (1.20-3.40); #Monocytes 0.9 thou/uL (0.11-0.59); %Basophils 0.8 % (0.0-1.0); %Eosinophils 3.4 % (0.0-10.0); %Lymphocytes 17.2 % (21.0-51.0); %Monocytes 8.6 % (0.0-10.0); %Neutrophils 69.9 % (42.0-75.0); Hemoglobin 11.5 g/dL (12.0-16.0); Mean Corpuscular HGB CONC 32.9 g/dL (32.0-36.0); Mean Corpuscular Hemoglobin 30.8 pg (27.0-31.0); Mean Corpuscular Volume 93.7 fL (78.0-98.0); Mean Platelet Volume 6.9 fL (7.4-10.4); Platelet Count 284 thou/uL (130-400); Red Blood Cell (RBC) Count 3.74 mill/uL (4.20-5.40); White Blood Cell (WBC) Count 10.1 thou/uL (4.8-10.8)
[2021-07-01 07:00] LABS: ALT (SGPT) 15 U/L (8-55); AST (SGOT) 26 U/L (5-34); Albumin 2.1 g/dL (3.4-4.8); Alkaline Phosphatase 143 U/L (40-110); Anion Gap 13 mmol/L (10-20); BUN (Urea Nitrogen) 29 mg/dL (9.8-20.1); Bilirubin, Total 0.6 mg/dL (0.2-1.2); CRP (Inflammatory) 1.62 mg/dL (= or < 0.5); Calc. Creatinine Clearance 54 mL/min (70-130); Calcium 7.7 mg/dL (7.8-10.44); Carbon Dioxide 17 mmol/L (23-31); Chloride 110 mmol/L (98-107); Globulin 2.4 g/dL (2.4-3.5); Glucose 134 mg/dL (83-110); Potassium 4.5 mmol/L (3.5-5.1); Protein, Total 4.5 g/dL (5.8-8.1); Sodium 135 mmol/L (136-145)
[2021-07-01 07:23] LABS: Vitamin D, 25 Hydroxy 8.1 ng/ml (> 30.0)
[2021-07-01] MEDS: Enoxaparin Sodium 40 MG/0.4 ML SYRINGE SC SCH (09:59)
[2021-07-01] MEDS: Saccharomyces boulardii 250 MG CAP PO SCH ×4 (09:59→21:26)
[2021-07-01] MEDS: Sodium Bicarbonate Tab 325 MG TAB PO SCH ×2 (16:09→21:26)
[2021-07-02] MEDS: Cholestyramine/Aspartame 4 gm Packet PO SCH ×5 (00:09→23:33)
[2021-07-02] MEDS: Vancomycin 25 MG/ML Oral SOLN PO SCH ×4 (02:58→20:33)
[2021-07-02 06:24] LABS: #Eosinphils 0.3 thou/uL (0.0-0.7); #Lymphocytes 1.7 thou/uL (1.20-3.40); #Monocytes 0.7 thou/uL (0.11-0.59); #Neutrophils 5.9 thou/uL (1.40-6.50); %Basophils 0.5 % (0.0-1.0); %Eosinophils 3.7 % (0.0-10.0); %Lymphocytes 19.5 % (21.0-51.0); %Monocytes 7.8 % (0.0-10.0); %Neutrophils 68.6 % (42.0-75.0); Hemoglobin 10.9 g/dL (12.0-16.0); Mean Corpuscular HGB CONC 32.6 g/dL (32.0-36.0); Mean Corpuscular Hemoglobin 30.8 pg (27.0-31.0); Mean Corpuscular Volume 94.5 fL (78.0-98.0); Mean Platelet Volume 6.6 fL (7.4-10.4); Platelet Count 269 thou/uL (130-400); Red Blood Cell (RBC) Count 3.54 mill/uL (4.20-5.40); White Blood Cell (WBC) Count 8.6 thou/uL (4.8-10.8)
[2021-07-02 06:46] LABS: ALT (SGPT) 13 U/L (8-55); AST (SGOT) 25 U/L (5-34); Alkaline Phosphatase 134 U/L (40-110); Anion Gap 11 mmol/L (10-20); BUN (Urea Nitrogen) 24 mg/dL (9.8-20.1); Bilirubin, Total 0.6 mg/dL (0.2-1.2); Calc. Creatinine Clearance 67 mL/min (70-130); Calcium 7.8 mg/dL (7.8-10.44); Carbon Dioxide 18 mmol/L (23-31); Chloride 111 mmol/L (98-107); Globulin 2.4 g/dL (2.4-3.5); Glucose 141 mg/dL (83-110); Potassium 4.2 mmol/L (3.5-5.1); Protein, Total 4.4 g/dL (5.8-8.1); Sodium 136 mmol/L (136-145)
[2021-07-02] MEDS: Enoxaparin Sodium 40 MG/0.4 ML SYRINGE SC SCH (09:09)
[2021-07-02] MEDS: Saccharomyces boulardii 250 MG CAP PO SCH ×3 (09:11→20:33)
[2021-07-02] MEDS: Sodium Bicarbonate Tab 325 MG TAB PO SCH ×3 (09:11→20:33)
[2021-07-02] MEDS: Melatonin 3 MG TAB PO PRN (20:37)
[2021-07-02] MEDS: HYDROcodone/Acetaminophen 5/325 mg Tablet PO PRN (20:37)
[2021-07-03 00:15] LABS: SARS-CoV-2 PCR by NAA Not Detected (NotDetected)
[2021-07-03] MEDS: Vancomycin 25 MG/ML Oral SOLN PO SCH ×4 (03:10→21:18)
[2021-07-03] MEDS: HYDROcodone/Acetaminophen 5/325 mg Tablet PO PRN ×3 (06:26→21:19)
[2021-07-03] MEDS: Cholestyramine/Aspartame 4 gm Packet PO SCH ×4 (06:26→23:30)
[2021-07-03] MEDS: Saccharomyces boulardii 250 MG CAP PO SCH ×3 (08:52→21:18)
[2021-07-03] MEDS: Sodium Bicarbonate Tab 325 MG TAB PO SCH ×3 (08:52→21:18)
[2021-07-03] MEDS: Enoxaparin Sodium 40 MG/0.4 ML SYRINGE SC SCH (08:52)
[2021-07-03] MEDS: Acetaminophen 325 MG TAB PO PRN (08:53)
[2021-07-04] MEDS: Vancomycin 25 MG/ML Oral SOLN PO SCH ×4 (04:02→22:05)
[2021-07-04] MEDS: Cholestyramine/Aspartame 4 gm Packet PO SCH ×3 (05:28→17:35)
[2021-07-04] MEDS: HYDROcodone/Acetaminophen 5/325 mg Tablet PO PRN ×3 (05:56→22:06)
[2021-07-04] MEDS: Enoxaparin Sodium 40 MG/0.4 ML SYRINGE SC SCH (09:19)
[2021-07-04] MEDS: Saccharomyces boulardii 250 MG CAP PO SCH ×3 (09:19→22:04)
[2021-07-04] MEDS: Sodium Bicarbonate Tab 325 MG TAB PO SCH ×3 (09:19→22:04)
[2021-07-05] MEDS: Cholestyramine/Aspartame 4 gm Packet PO SCH ×3 (00:21→12:04)
[2021-07-05] MEDS: Vancomycin 25 MG/ML Oral SOLN PO SCH ×3 (03:50→14:27)
[2021-07-05] MEDS: HYDROcodone/Acetaminophen 5/325 mg Tablet PO PRN (06:19)
[2021-07-05] MEDS: Sodium Bicarbonate Tab 325 MG TAB PO SCH ×2 (08:59→14:27)
[2021-07-05] MEDS: Saccharomyces boulardii 250 MG CAP PO SCH ×2 (09:00→14:26)
[2021-07-05] MEDS: Enoxaparin Sodium 40 MG/0.4 ML SYRINGE SC SCH (09:00)
[2021-07-05 09:16] VITALS: BP 130/78; TEMP 97.9
[2021-07-05 11:01] LABS: Anion Gap 12 mmol/L (10-20); BUN (Urea Nitrogen) 17 mg/dL (9.8-20.1); Calc. Creatinine Clearance 72 mL/min (70-130); Calcium 7.3 mg/dL (7.8-10.44); Carbon Dioxide 16 mmol/L (23-31); Chloride 109 mmol/L (98-107); Glucose 159 mg/dL (83-110); Potassium 4.4 mmol/L (3.5-5.1); Sodium 133 mmol/L (136-145)
[2021-07-08] MEDS ORDERED: Ergocalciferol 1.25 MG(50,000 UNITS) CAP PO SCH (09:00)
== END 2021-07-05 17:03 | DRG 871 ==
LOC: ERS 08:20 → ERHOLD 10:44 → 2NO 13:21 → T4-A 06-27 11:56
PROVIDERS: ADMIT Family Medicine; ATTEND Internal Medicine
DX: A41.9 Sepsis, unspecified organism (principal); L89.153 Pressure ulcer of sacral region, stage 3; G93.41 Metabolic encephalopathy; N17.9 Acute kidney failure, unspecified; A04.72 Enterocolitis due to Clostridium difficile, not specified as recurrent; E87.1 Hypo-osmolality and hyponatremia; E87.2 Acidosis; N39.0 Urinary tract infection, site not specified; E46 Unspecified protein-calorie malnutrition; Z20.822 Contact with and (suspected) exposure to COVID-19; E88.09 Other disorders of plasma-protein metabolism, not elsewhere classified; E55.9 Vitamin D deficiency, unspecified; K57.30 Diverticulosis of large intestine without perforation or abscess without bleeding; E86.1 Hypovolemia; B96.1 Klebsiella pneumoniae [K. pneumoniae] as the cause of diseases classified elsewhere; R63.0 Anorexia; Z66 Do not resuscitate; B95.2 Enterococcus as the cause of diseases classified elsewhere; L89.302 Pressure ulcer of unspecified buttock, stage 2; I12.9 Hypertensive chronic kidney disease with stage 1 through stage 4 chronic kidney disease, or unspecified chronic kidney disease; E11.22 Type 2 diabetes mellitus with diabetic chronic kidney disease; E78.5 Hyperlipidemia, unspecified; F41.9 Anxiety disorder, unspecified; F32.A Depression, unspecified; I25.10 Atherosclerotic heart disease of native coronary artery without angina pectoris; K21.9 Gastro-esophageal reflux disease without esophagitis; R65.20 Severe sepsis without septic shock; E87.6 Hypokalemia; R33.9 Retention of urine, unspecified; G25.81 Restless legs syndrome; E11.51 Type 2 diabetes mellitus with diabetic peripheral angiopathy without gangrene; N18.30 Chronic kidney disease, stage 3 unspecified; Z88.6 Allergy status to analgesic agent; Z88.8 Allergy status to other drugs, medicaments and biological substances; Z91.013 Allergy to seafood; Z68.27 Body mass index [BMI] 27.0-27.9, adult; Z86.73 Personal history of transient ischemic attack (TIA), and cerebral infarction without residual deficits; Z87.442 Personal history of urinary calculi; D63.1 Anemia in chronic kidney disease; Z79.02 Long term (current) use of antithrombotics/antiplatelets; Z79.84 Long term (current) use of oral hypoglycemic drugs; Z79.899 Other long term (current) drug therapy
CPT/HCPCS: 36415; 36416; 70450; 71045; 74177; 80048; 80053; 81003; 81015; 82306; 82570; 83605; 83735; 83970; 84100; 84145; 84156; 84439; 84443; 84481; 85025; 85610; 85652; 85730; 86140; 87040; 87045; 87046; 87070; 87077; 87086; 87186; 87205; 87324; 87427; 87449; 93005; 94760; 96374; 96375; J1650; J1815; J2185; J2543; J3370; J3475; J3480; J3490; J7050; J7070; J7120; U0002; U0003; U0005